=== PATIENT | female | born 1980 | race Caucasian/White ===

== ENCOUNTER 2022-04-09 08:35 | Outpatient (CLI) | payer OTHER, SELFPAY ==
[2022-04-09 14:16] LABS: Albumin* 4.3 g/dL (3.3-5.0); Chloride* 105 mmol/L (96-114); Potassium* 4.7 mmol/L (3.6-5.1); Sodium* 139 mmol/L (135-149)
[2022-04-09 14:18] LABS: Bilirubin Total* 0.4 mg/dL (0.1-1.5); Creatinine* 0.7 mg/dL (0.5-1.5); Estimated Glomerular Filt Rate 111 ml/min
[2022-04-09 14:19] LABS: Alanine Aminotransferase* 17 U/L (4-35); Alkaline Phosphatase* 60 U/L (40-150); Aspartate Amino Transferase* 23 U/L (12-35); Blood Urea Nitrogen* 16 mg/dL (5-24); Carbon Dioxide* 30 mmol/L (20-32); Glucose* 77 mg/dL (60-115); Lipase* 71 U/L (23-300); Total Protein* 7.1 g/dL (6.0-8.3)
[2022-04-09 14:20] LABS: Calcium* 9.4 mg/dL (8.4-10.6)
[2022-04-09 14:45] LABS: C Reactive Protein* < 0.5 mg/dL (0.5-1.0)
== END 2022-04-09 08:36 | disposition home or self-care (01) ==
PROVIDERS: PCP Family Medicine; Visit Provider Family Medicine
DX: R10.13 Epigastric pain (principal)
CPT/HCPCS: 80053; 83690; 86140

== ENCOUNTER 2022-04-14 08:47 | Outpatient (CLI) | payer OTHER, SELFPAY ==
--- NOTE | 2022-04-14 08:45 | CRLHL7_ITS ---
For Patients: As a result of the Century Cures Act, medical imaging exams and procedure reports are released immediately into your electronic medical record. You may view this report before your referring provider. If you have questions, please contact your health care provider. INDICATION: RUQ post prandial pain COMPARISON: none TECHNIQUE: Real time tracey scale imaging and color Doppler analysis was performed of the right upper quadrant. FINDINGS: The patient`s liver is of normal size and has uniform echogenicity. There is a normal appearance of the hepatic IVC and proximal abdominal aorta. There is no evidence of ascites. The gallbladder is of normal size and there is no evidence of intraluminal stones or sludge. The gallbladder wall measures 1 mm in thickness. The common bile duct is of normal size and measures 8 mm in diameter at the level of the nguyen hepatis. The pancreas appears normal. There is no evidence of a stone or hydronephrosis within the right kidney. The right kidney measures 12 point cm in length. IMPRESSION: The common bile duct is mildly prominent measuring 8 millimeters. No gallstones. Consider HIDA scan for further evaluation. Remainder unremarkable. Dictated by Arslan Farris MD @ 04/14/2022 10:18:27 AM (Electronically Signed)
== END 2022-04-14 08:48 | disposition home or self-care (01) ==
PROVIDERS: PCP Family Medicine; Visit Provider Family Medicine
DX: R10.11 Right upper quadrant pain (principal)
CPT/HCPCS: 76705

== ENCOUNTER 2022-11-30 13:25 | Outpatient (CLI) | payer OTHER, SELFPAY | END 2022-11-30 13:26 | disposition home or self-care (01) | PROVIDERS: PCP Physician Assistant Medical; Referring Provider Physician Assistant Medical; Visit Provider Physician Assistant | DX: R32 Unspecified urinary incontinence (principal); N32.81 Overactive bladder; N39.46 Mixed incontinence | CPT/HCPCS: 87086 ==

== ENCOUNTER 2023-07-29 15:31 | Outpatient (CLI) | payer OTHER, SELFPAY ==
--- NOTE | 2023-07-29 15:40 | CRLHL7_ITS ---
For Patients: As a result of the Century Cures Act, medical imaging exams and procedure reports are released immediately into your electronic medical record. You may view this report before your referring provider. If you have questions, please contact your health care provider. BILATERAL SCREENING MAMMOGRAM WITH COMPUTER-AIDED DETECTION TECHNIQUE: CC and MLO views were obtained. These mammographic images have been obtained using full-field digital technique. These mammographic images were interpreted with the benefit of computer-aided detection. COMPARISON FILM: Baseline. FINDINGS: The breasts are heterogeneously dense, which may obscure small masses IMPRESSION: There is no radiographic evidence for malignancy. ASSESSMENT: BI-RADS Category 1: Negative RECOMMENDATION: Routine screening mammogram in 1 year. A lay language report of this examination will be provided to the patient. Arslan Farris M.D. Diagnostic Radiologist [email or web address] MICHAEL/Dictated by: Arslan Farris MD @ 07/30/2023 9:57:00 AM (Electronically Signed)
== END 2023-07-29 15:32 | disposition home or self-care (01) ==
LOC: MAMMO 15:33
PROVIDERS: PCP Physician Assistant Medical; Visit Provider Physician Assistant
DX: Z12.31 Encounter for screening mammogram for malignant neoplasm of breast (principal); R92.2 Inconclusive mammogram
CPT/HCPCS: 77067

== ENCOUNTER 2024-08-08 16:37 | Outpatient (CLI) | payer OTHER, SELFPAY ==
--- NOTE | 2024-08-08 16:40 | CRLHL7_ITS ---
For Patients: As a result of the Century Cures Act, medical imaging exams and procedure reports are released immediately into your electronic medical record. You may view this report before your referring provider. If you have questions, please contact your health care provider. BILATERAL SCREENING MAMMOGRAM WITH COMPUTER-AIDED DETECTION AND TOMOSYNTHESIS TECHNIQUE: CC and MLO views were obtained. These mammographic images have been obtained using full-field digital technique. These mammographic images were interpreted with the benefit of computer-aided detection. Breast Tomosynthesis was used in this interpretation. COMPARISON FILM: 07/29/23. FINDINGS: The breasts are heterogeneously dense, which may obscure small masses IMPRESSION: There is no radiographic evidence for malignancy. ASSESSMENT: BI-RADS Category 1: Negative RECOMMENDATION: Routine screening mammogram in 1 year. A lay language report of this examination will be provided to the patient. Arslan Farris M.D. Diagnostic Radiologist [email or web address] SALINA/lane Transcribed: 4:27 [email or web address]/Dictated by: Arslan Farris MD @ 08/09/2024 11:08:00 AM (Electronically Signed)
== END 2024-08-08 16:38 | disposition home or self-care (01) ==
LOC: MAMMO 16:38
PROVIDERS: Visit Provider Physician Assistant
DX: Z12.31 Encounter for screening mammogram for malignant neoplasm of breast (principal); R92.333 Mammographic heterogeneous density, bilateral breasts
CPT/HCPCS: 77063; 77067